=== PATIENT | female | born 1985 | race American Indian/Alaskan Native ===

== ENCOUNTER 2019-07-08 16:02 | Emergency (ER) | payer SELFPAY ==
[2019-07-08 16:08] VITALS: BP 109/82
--- NOTE | 2019-07-08 16:49 | Emergency Department Report ---
Chief Complaint: Pain General Stated Complaint: FLU LIKE SYM/BODY ACHES Time Seen by Provider: 07/08/19 16:44 - HPI History of Present Illness: This is a 34 y.o. F. that presents to the ER with cough, fever, chills, congestion, and myalgia x 4 days. Patient states she is taking OTC cold and flu medication. She started feeling better and symptoms progressed yesterday. - ROS Review of Systems: Constitutional: admits: chills, fever ENT: admits: congestion, denies: ear pain Respiratory: denies: cough, shortness of breath, wheezing Cardiovascular: denies: chest pain, palpitations Gastrointestinal: denies: abdominal pain, nausea, diarrhea Skin: denies: rash, lesions Neurological: denies: headache, weakness, paresthesias Psychiatric: denies: anxiety, depression - Exam Vital Signs: Vital Signs 07/08/19 16:06 Temperature 98.4 F Pulse Rate 83 Respiratory 18 Rate Blood Pressure 109/82 [Right] O2 Sat by Pulse 97 Oximetry Physical Exam: General: Vital signs noted. No distress. Alert and acting appropriately. HEENT: Turbinated congested with clear discharge, Yes Moist Mucous Membranes, No Pharyngeal Erythema, No Pharyngeal Exudates, No Conjuctival Injection, No Frontal Tenderness, No Maxillary Tenderness Ear: Neither TM Bulge, Neither TM Erythema, Neither EAC Pain, Neither EAC Discharge, Neither Cerumen Impaction Neck exam: Adenopathy: No, Supple: Yes Lung exam: Good Air Exchange: Yes, Wheezes: No, Stridor: No, Cough: No, Nasal Flaring: No, Retractions: No, Use of Accessory Muscles: No Heart: Yes Regular, No Murmur Abdomen: Abdominal Tenderness: No, Peritoneal Signs: No, Normal Bowel Sounds: Yes, Distention: No Skin Exam: Rash: No, Eczema: No Neurologic: Alert and oriented, no deficits. MSE screening note: Focused history and physical exam performed. Due to findings the following was ordered: ED Medical Decision Making - Medical Decision Making Patient was examined by me. Patient is nontoxic appearing and stable. Vitals are normal. Physical findings susceptible of URI. Patient informed of results. Instructed to take Tylenol or ibuprofen for pain. Start ceterizine, flonase, and benzonatate. Return to work in 3 days. Follow up with PCP or return to the ER with worsening symptoms. Patient discharged home in stable condition. ED Disposition for MSE Clinical Impression: Upper respiratory infection Qualifiers: URI type: acute nasopharyngitis (common cold) Qualified Code(s): J00 - Acute nasopharyngitis [common cold] Disposition: TO HOME OR SELFCARE Is pt being admited?: No Does the pt Need Aspirin: No Condition: Stable Instructions: Upper Respiratory Infection (ED), Cold Symptoms (ED) Prescriptions: Fluticasone [Flonase] 1 spray NS QDAY #1 bottle Benzonatate [Tessalon Perles] 100 mg PO Q8HR PRN #30 capsule PRN Reason: Cough Cetirizine HCl [Zyrtec 10mg tab] 10 mg PO DAILY #30 tablet Referrals: [facility] [place] [Outside] - 3-5 Days [facility] [Outside] - 3-5 Days [facility] [Outside] - 3-5 Days Forms: Work/School Release Form(ED) Time of Disposition: 17:35
== END 2019-07-08 17:30 | disposition home or self-care (01) ==
LOC: ED 16:02
DX: J06.9 Acute upper respiratory infection, unspecified (principal)
CPT/HCPCS: 99282